=== PATIENT | male | born 1945 | race Caucasian/White ===

== ENCOUNTER → 2016-08-10 | Outpatient (CLI) | payer OTHER | LOC: BHLMT 16:15 | PROVIDERS: ATTEND Internal Medicine Cardiovascular Disease | DX: R07.9 Chest pain, unspecified (principal); R06.00 Dyspnea, unspecified; I10 Essential (primary) hypertension | CPT/HCPCS: 93306-PO ==

== ENCOUNTER → 2016-08-17 | Outpatient (CLI) | payer OTHER | LOC: BHFA 11:30 | PROVIDERS: ATTEND Internal Medicine Cardiovascular Disease | DX: R07.9 Chest pain, unspecified (principal) ==